=== PATIENT | female | born 1985 | race Caucasian/White ===

== ENCOUNTER 2016-08-09 10:30 | Inpatient (IN) | payer MEDICAID, OTHER ==
[~2016-08-09] VITALS: Ht 165.1 cm; Wt 87.5 kg
[~2016-08-09 10:30] MED LIST: CEPH-443 PO; HYDR-3498 PO
[2016-08-09] MEDS ORDERED: BUTORPHANOL 2 MG INJ IV PRN (11:00)
[2016-08-09] MEDS ORDERED: CARBOPROST 250 MCG INJ IM PRN ×2 (11:00→23:30)
[2016-08-09] MEDS ORDERED: IBUPROFEN 600 MG TAB PO PRN (11:00)
[2016-08-09] MEDS ORDERED: MISOPROSTOL 200 MCG TAB PR PRN ×2 (11:00→23:30)
[2016-08-09] MEDS ORDERED: LIDOCAINE 1% (MPF) 30 ML INJ INJ PRN (11:00)
[2016-08-09] MEDS ORDERED: OXYTOCIN 30 UNITS/LR 500 ML IV PRN ×2 (11:00→23:30)
[2016-08-09] MEDS ORDERED: LACTATED RINGER'S 1,000 ML IV PRN (11:00)
[2016-08-09] MEDS ORDERED: METHYLERGONOVINE 0.2 MG INJ IM PRN ×2 (11:00→23:30)
[2016-08-09] MEDS ORDERED: OXYTOCIN 30 UNITS/LR 500 ML IV SCH ×3 (11:00→13:00)
[2016-08-09] MEDS ORDERED: PRENAT PO (11:01)
[2016-08-09 11:02] VITALS: Ht 165.1 cm; Wt 87.5 kg
[2016-08-09 11:03] VITALS: BP 105/69; RESP 16
[2016-08-09 11:19] LABS: ADD SCAN DIFF NO
[2016-08-09 11:25] LABS: BASOPHIL # 0.1 10^3/ul (0.0-0.1); BASOPHILS % 0.4 % (0.0-2.0); EOSINOPHILS # 0.2 10^3/ul (0.0-0.5); EOSINOPHILS % 1.4 % (0.0-7.0); HEMATOCRIT 32.5 % (37.0-47.0); HEMOGLOBIN 9.9 g/dl (12.0-16.0); LYMPHOCYTES # 2.5 10^3/ul (0.8-2.9); LYMPHOCYTES % 21.8 % (15.0-51.0); MEAN CORPUSCULAR HEMOGLOBIN 24.5 pg (29.0-33.0); MEAN CORPUSCULAR HGB CONC 30.5 g/dl (32.0-37.0); MEAN CORPUSCULAR VOLUME 80.4 fl (82.0-101.0); MEAN PLATELET VOLUME 10.1 fl (7.4-10.4); MONOCYTE # 1.3 10^3/ul (0.3-0.9); MONOCYTES % 11.1 % (0.0-11.0); NEUTROPHIL # 7.3 10^3/ul (1.6-7.5); NUCLEATED RED BLOOD CELLS% 0.2 /100WBC (0.0-0.0); PLATELET COUNT 287 10^3/UL (140-415); RED BLOOD COUNT 4.04 10^6/ul (4.20-5.40); RED CELL DISTRIBUTION WIDTH 19.5 % (11.5-14.5); WHITE BLOOD COUNT 11.4 10^3/ul (4.8-10.8)
[2016-08-09] MEDS: LACTATED RINGER'S 1,000 ML IV SCH ×4 (11:36→20:16)
[2016-08-09 11:40] LABS: PARTIAL THROMBOPLASTIN TIME 25.5 Sec (25.0-35.0); PROTIME 13.2 Sec (12.2-14.2)
--- NOTE | 2016-08-09 12:14 | RADRPT ---
PROCEDURE: US OB. CLINICAL INDICATION: Size and dates TECHNIQUE: Multiple sonographic images of the pelvis and gravid uterus were obtained. The images were reviewed on a PACS workstation. COMPARISON: No prior studies are available for comparison. FINDINGS: There is a single viable intrauterine gestation. Cardiac activity is present with 141 beats per min eric. There is a vertex presentation. The placenta is fundal. There is no evidence for an abruption or placenta previa. Measurements were made in order to determine age. The results are as follows: BPD =9.4 cm HC =33.2 cm AC =36.1 cm FL =7.0 cm Estimated gestational age of approximately 38 weeks and 0 days based on ultrasound measurements. Clinical age: 39 weeks and 0 days. The estimated date of delivery is 08/23/16, based on ultrasound measurements. The EFW = 3568 g, 62%, based on LMP age. RPTAT: AA IMPRESSION: Single viable intrauterine gestation of approximately 38 weeks and 0 days based on ultrasound measu rements. .Anatoly Valdes MD, Date Time Electronically viewed and signed by .Anatoly Valdes MD, on 08/09/2016 12:13 .S/
[2016-08-09 18:11] LABS: BARBITURATES NEGATIVE (NEGATIVE); BENZODIAZEPINES NEGATIVE (NEGATIVE); CANNABINOIDS NEGATIVE (NEGATIVE); COCAINE NEGATIVE (NEGATIVE); OPIATES NEGATIVE (NEGATIVE)
--- NOTE | 2016-08-09 19:38 | PREOPHP ---
DATE OF ADMISSION: 08/09/2016 HISTORY OF PRESENT ILLNESS: Ms. Jayda Garcia is a 31-year-old 2, para 1, EDC 08/16/2016, intrauterine at 39 weeks gestational age, admitted today for induction secondary to polyhy dramnios. The patient was noted to have late care, approximately 34 weeks' gestational age . She denies any vaginal bleeding or discharge. Her vaginal exam on admission was 4 cm dilated. S he is currently on Pitocin for labor augmentation. She is unsure whether she wants to get an epidur al at this time. PAST MEDICAL HISTORY: None. MEDICATIONS: vitamins. PAST SURGICAL HISTORY: None. OBSTETRICAL HISTORY: Times 1 vaginal delivery. GYNECOLOGIC HISTORY: 12, regular 3 to 4 days. Denies any sexually transmitted diseases. Sexually active with 1 partner. SOCIAL HISTORY: Denies any smoking, drugs, or alcohol. FAMILY HISTORY: None. PHYSICAL EXAMINATION: HEENT: Within normal. LUNGS: CTA bilateral. CARDIOVASCULAR: S1, S2, regular rhythm. ABDOMEN: Gravid, nontender. EXTREMITIES: Negative edema. No calf tenderness. PELVIC: Vaginal exam 5 cm dilated, 70% effaced, -2 station. AROM, positive blood-tinged, significa nt amount, Rh negative. LABORATORY DATA: The patient tested positive for amphetamines on 08/09/2016. ASSESSMENT: 1. A 31-year-old 2, para 1, intrauterine at 39 weeks' gestational age. 2. Polyhydramnios. 3. Rh negative. 4. Positive for amphetamines. 5. Currently Pitocin for induction. PLAN: Continue present management. Dictated By: BLAS YOO/SANNA Conf#: [id number] DID#: [id number]
[2016-08-09] MEDS ORDERED: FENTAnyl 2MCG/ML-ROPIV 0.2% 100 ML ONE (19:50)
[2016-08-09 23:04] LABS: BARBITURATES NEGATIVE (NEGATIVE); BENZODIAZEPINES NEGATIVE (NEGATIVE); CANNABINOIDS NEGATIVE (NEGATIVE); COCAINE NEGATIVE (NEGATIVE); OPIATES NEGATIVE (NEGATIVE)
--- NOTE | 2016-08-09 23:11 | LDN ---
Date/Time of Note Date/Time of Note DATE: 08/09/16 TIME: 23:09 Delivery Summary Weeks of Gestation 39 wks ga Placenta Delivered: Spontaneously Meconium: none Episiotomy: No Laceration repair: no laceration Anesthesia type: Epidural Sponge & Needle done & correct: Yes All needle counts correct: Yes Any foreign bodies felt in the: No Problems: Delivery Information Sex Sex: male Apgars 1 Minute: 8 5 Minute: 9 Suctioning Nose & mouth suctioned at jackelyn: No Delee suction performed: No Umbilical Cord Umbilical cord with: 3 Vessels Cord presentations: nuchal cord Nuchal cord present X: 1 Cord Blood was obtained: Yes BLAS GOMEZ MD August 09, 2016 23:11
[2016-08-09] MEDS ORDERED: SENNA/DOCUSATE NA (8.6MG/50MG) TAB PO PRN (23:30)
[2016-08-09] MEDS ORDERED: OXYCODONE/ASPIRIN (4.88/325) TAB PO PRN ×2 (23:30)
[2016-08-09] MEDS ORDERED: LANOLIN 7 GM TUBE TOP PRN (23:30)
[2016-08-09] MEDS ORDERED: WITCH HAZEL/GLYCERIN PAD PR PRN (23:30)
[2016-08-09] MEDS ORDERED: DIBUCAINE 1% 30 GM OINT PR PRN (23:30)
[2016-08-09] MEDS ORDERED: BENZOCAINE 20% 56 ML SPRAY TOP PRN (23:30)
[2016-08-10 01:50] VITALS: BP 133/79; PULSE 114; RESP 18
[2016-08-10] MEDS: IBUPROFEN 600 MG TAB PO SCH ×5 (02:00→23:33)
[2016-08-10 03:30] VITALS: BP 116/67; PULSE 118
[2016-08-10] MEDS: LACTATED RINGER'S 1,000 ML IV* SCH ×3 (03:41→15:11)
[2016-08-10 08:32] LABS: ADD SCAN DIFF NO
[2016-08-10 08:38] LABS: ABNORMAL IP MESSAGE 1; BASOPHILS % 0.3 % (0.0-2.0); EOSINOPHILS # 0.1 10^3/ul (0.0-0.5); EOSINOPHILS % 0.3 % (0.0-7.0); HEMATOCRIT 31.5 % (37.0-47.0); HEMOGLOBIN 9.8 g/dl (12.0-16.0); LYMPHOCYTES # 2.1 10^3/ul (0.8-2.9); LYMPHOCYTES % 13.4 % (15.0-51.0); MEAN CORPUSCULAR HEMOGLOBIN 25.2 pg (29.0-33.0); MEAN CORPUSCULAR HGB CONC 31.1 g/dl (32.0-37.0); MEAN PLATELET VOLUME 10.4 fl (7.4-10.4); MONOCYTE # 1.8 10^3/ul (0.3-0.9); MONOCYTES % 11.3 % (0.0-11.0); NEUTROPHIL # 11.5 10^3/ul (1.6-7.5); NEUTROPHILS % 73.9 % (39.0-77.0); PLATELET COUNT 278 10^3/UL (140-415); RED BLOOD COUNT 3.89 10^6/ul (4.20-5.40); RED CELL DISTRIBUTION WIDTH 19.8 % (11.5-14.5); WHITE BLOOD COUNT 15.5 10^3/ul (4.8-10.8)
[2016-08-10 08:40] VITALS: BP 113/69; PULSE 105; RESP 18
[2016-08-10] MEDS: SENNA/DOCUSATE NA (8.6MG/50MG) TAB PO SCH ×2 (09:40→21:13)
[2016-08-10 11:20] VITALS: BP 113/74; PULSE 104; RESP 18
--- NOTE | 2016-08-10 13:26 | QN ---
Documentation Comment patient seen and evaluated no complaints vs stable afebrile abd soft nt uterine fundus below umbillicus extremity no edema no calf tenderss a/ s/p PPD 1 stable afebrile p/ cbc in am BLAS GOMEZ MD August 10, 2016 13:25
[2016-08-10 15:30] VITALS: BP 120/62; PULSE 107; RESP 20
[2016-08-10 19:35] VITALS: BP 121/74; PULSE 102; RESP 18
[2016-08-10] MEDS: FERROUS SULFATE (EC) 325 MG TAB PO SCH (21:12)
[2016-08-11 03:45] VITALS: BP 107/70; PULSE 86; RESP 20
[2016-08-11] MEDS: IBUPROFEN 600 MG TAB PO SCH ×2 (05:49→11:43)
--- NOTE | 2016-08-11 07:56 | PD.PPDC ---
TIE INSPECTOR Discharge Instruction Condition Patient Condition: Good Diet Diet: Resume Regular Diet Activity/Restrictions Restrictions: No Sexual Activity Nothing in the Vagina No [place] No Tampons, douche Follow-up Follow-up with Physician: 3, Week/Weeks Return to clinic for MANAGER PRICING Instructions: Fever greater than 101 Chills Worsening abdominal pain Excessive Vaginal Bleeding More than 2 pads per hour Unable to tolerate diet OB Instructions: Breast Tenderness Depression Blurried Vision Headache Surgical Instructions: Incisional Drainage Incisional Redness BLAS GOMEZ MD August 11, 2016 07:56
[2016-08-11 08:39] LABS: ADD SCAN DIFF NO
[2016-08-11 09:00] VITALS: BP 131/85; PULSE 18; RESP 18
[2016-08-11 09:03] LABS: ABNORMAL IP MESSAGE 1; BASOPHIL # 0.1 10^3/ul (0.0-0.1); BASOPHILS % 0.7 % (0.0-2.0); EOSINOPHILS # 0.3 10^3/ul (0.0-0.5); EOSINOPHILS % 2.9 % (0.0-7.0); HEMOGLOBIN 9.7 g/dl (12.0-16.0); LYMPHOCYTES # 2.4 10^3/ul (0.8-2.9); MEAN CORPUSCULAR HEMOGLOBIN 24.4 pg (29.0-33.0); MEAN CORPUSCULAR HGB CONC 29.4 g/dl (32.0-37.0); MEAN CORPUSCULAR VOLUME 82.9 fl (82.0-101.0); MEAN PLATELET VOLUME 10.3 fl (7.4-10.4); MONOCYTE # 1.6 10^3/ul (0.3-0.9); MONOCYTES % 13.7 % (0.0-11.0); NEUTROPHILS % 60.3 % (39.0-77.0); PLATELET COUNT 253 10^3/UL (140-415); RED BLOOD COUNT 3.98 10^6/ul (4.20-5.40); WHITE BLOOD COUNT 11.6 10^3/ul (4.8-10.8)
[2016-08-11] MEDS: FERROUS SULFATE (EC) 325 MG TAB PO SCH (10:08)
[2016-08-11] MEDS: SENNA/DOCUSATE NA (8.6MG/50MG) TAB PO SCH (10:08)
--- NOTE | 2016-08-11 11:14 | DS ---
DATE OF ADMISSION: 08/09/2016 DATE OF DISCHARGE: 08/11/2016 PRIMARY DIAGNOSIS: A 31-year-old 2, para 1, intrauterine at 39 weeks' gestational age, polyhydramnios Rh negative. PROCEDURE: Normal spontaneous vaginal delivery with Pitocin induction. CONDITION ON DISCHARGE: Stable. ACTIVITY: None per vagina, no heavy lifting x6 weeks. DIET: Regular. MEDICATIONS ON DISCHARGE 1. Motrin. 2. Iron. 3. Colace. DISCHARGE SUMMARY: Ms. Jayda Garcia is a 31-year-old 2, para 2, status post normal sponta neous vaginal delivery on 08/09/2016. She had a viable male, 8 and 9 respectively at 1 and 5 minutes. She had an uneventful on day 1 and 2. She will be discharged on 08/11/2016. S he will follow up in the office in 3 weeks for care. Dictated By: BLAS YOO/SANNA Conf#: [id number] DID#: [id number]
--- NOTE | 2016-08-11 12:45 | PDOCDIS ---
Discharge Instructions CONDITION Patient Condition: Good SCHOOL/WORK RELEASE May return to School/Work with: No Restrictions (discharge with mom rto in 5days) RADHA SANCHEZ MD August 11, 2016 12:45
--- NOTE | 2016-08-11 12:50 | PN ---
Date/Time of Note Date/Time of Note DATE: 08/11/16 TIME: 12:46 SOAP Vital Signs Vital Signs Vital Signs Date Time Temp Pulse Resp B/P Pulse Ox O2 Delivery O2 Flow Rate FiO2 08/11/16 09:00 98.0 18 18 131/85 Room Air NPASS Score-Pain: Labs/Micro Laboratory Tests Test 08/11/16 08:32 White Blood Count 11.610^3/ul (4.8-10.8) Red Blood Count 3.9810^6/ul (4.20-5.40) Hemoglobin 9.7g/dl (12.0-16.0) Hematocrit 33.0% (37.0-47.0) Mean Corpuscular Volume 82.9fl (82.0-101.0) Mean Corpuscular Hemoglobin 24.4pg (29.0-33.0) Mean Corpuscular Hemoglobin Concent 29.4g/dl (32.0-37.0) Red Cell Distribution Width 21.0% (11.5-14.5) Platelet Count 81366^3/UL (140-415) Mean Platelet Volume 10.3fl (7.4-10.4) Neutrophils % 60.3% (39.0-77.0) Lymphocytes % 21.0% (15.0-51.0) Monocytes % 13.7% (0.0-11.0) Eosinophils % 2.9% (0.0-7.0) Basophils % 0.7% (0.0-2.0) Nucleated Red Blood Cells % 0.0/100WBC (0.0-0.0) Neutrophils # 7.010^3/ul (1.6-7.5) Lymphocytes # 2.410^3/ul (0.8-2.9) Monocytes # 1.610^3/ul (0.3-0.9) Eosinophils # 0.310^3/ul (0.0-0.5) Basophils # 0.110^3/ul (0.0-0.1) Nucleated Red Blood Cells # 0.010^3/ul (0.0-0.0) Plan discharge summary baby is doing well no fever no grunting no jaundice P.E are normal Plan discharge with mom Imression 39 weeks gestational male RTo in 5 days RADHA SANCHEZ MD August 11, 2016 12:49
== END 2016-08-11 13:50 | disposition home or self-care (01) | DRG 775 ==
LOC: L-D 10:45 → PP1 08-10 01:35
PROVIDERS: ADMIT Obstetrics & Gynecology; ATTEND Obstetrics & Gynecology
PROC: 10E0XZZ Delivery of Products of Conception, External Approach (ICD-10-PCS; principal; 2016-08-09 10:30)
DX: O69.81X0 Labor and delivery complicated by cord around neck, without compression, not applicable or unspecified (principal); O99.324 Drug use complicating childbirth; O40.3XX0 Polyhydramnios, third trimester, not applicable or unspecified; F15.90 Other stimulant use, unspecified, uncomplicated; Z3A.39 39 weeks gestation of pregnancy; Z37.0 Single live birth
CPT/HCPCS: 62319; 76815; 80307; 85025; 85610; 85730; 86592; 86850; 86870; 86885; 86900; 86901; J2590; J2790; J3010; J7120